=== PATIENT | female | born 1955 | race Caucasian/White ===

== ENCOUNTER → 2017-11-21 07:01 | Outpatient (CLI) | payer BC, SELFPAY ==
[2017-11-21 08:51] LABS: Add Manual Diff / Slide Review NO; Basophils Percent Auto 0.3 % (0-2); Hematocrit 42.6 % (36-46); Hemoglobin 14.5 g/dL (12.0-16.0); Lymphocytes Percent Auto 60.8 % (25-40); Mean Corpuscular Hemoglobin 31.4 PG (26-34); Mean Corpuscular Volume 92.5 fL (80-100); Monocytes Percent Auto 9.5 % (3-14); Neutrophils Absolute Auto 1000 /uL (3000-5900); Neutrophils Percent Auto 25.4 % (50-75); Platelet Count 172 X10^3/uL (150-400); Red Cell Distribution Width 13.5 % (11.6-14.8); White Blood Cell Count 3.8 X10^3/uL (4.5-11.0)
[2017-11-21 09:25] LABS: Alanine Aminotransferase 25 IU/L (9-52); Albumin 4.5 g/dL (3.5-5.0); Albumin Globulin Ratio 1.6 (1.0-2.8); Alkaline Phosphatase 45 U/L (38-126); Aspartate Aminotransferase 27 IU/L (14-36); Bilirubin Total 0.6 mg/dL (0.2-1.3); Blood Urea Nitrogen 18 mg/dL (7-17); Calcium 9.3 mg/dL (8.4-10.2); Carbon Dioxide 33 mmol/L (22-32); Chloride 104 mmol/L (98-107); Estimated Glomerular Filt Rate 55.8 mL/min (>60); Globulin 2.8 g/dL (1.7-4.1); Glucose 91 mg/dL (80-110); HEMOLYSIS < 15 (0-50); Potassium 3.8 mmol/L (3.4-5.1); Sodium 145 mmol/L (137-145); Total Protein 7.3 g/dL (6.3-8.2)
[2017-11-21 09:29] LABS: Free T3, Triiodothyronine Free 2.91 pg/mL (2.77-5.27); Free T4, Direct Thyroxine 0.69 ng/dL (0.78-2.19)
[2017-11-21 09:42] LABS: Thyroid Stimulating Hormone 3.89 uIU/mL (0.47-4.68)
== END ==
PROVIDERS: PCP Naturopath; Visit Provider Naturopath
DX: E03.9 Hypothyroidism, unspecified (principal)
CPT/HCPCS: 36415; 80053; 84439; 84443; 84481; 85025

== ENCOUNTER → 2018-05-01 14:20 | Outpatient (CLI) | payer MEDICARE, OTHER, SELFPAY ==
[2018-05-01 15:33] LABS: Alanine Aminotransferase 31 IU/L (9-52); Albumin 4.5 g/dL (3.5-5.0); Albumin Globulin Ratio 1.7 (1.0-2.8); Alkaline Phosphatase 54 U/L (38-126); Aspartate Aminotransferase 25 IU/L (14-36); BUN Creatinine Ratio 23.3 (6-22); Bilirubin Total 0.2 mg/dL (0.2-1.3); Blood Urea Nitrogen 21 mg/dL (7-17); Calcium 9.2 mg/dL (8.4-10.2); Carbon Dioxide 29 mmol/L (22-32); Chloride 101 mmol/L (98-107); Estimated Glomerular Filt Rate > 60.0 mL/min (>60); Globulin 2.6 g/dL (1.7-4.1); Glucose 88 mg/dL (80-110); HEMOLYSIS < 15 (0-50); Potassium 3.8 mmol/L (3.4-5.1); Sodium 140 mmol/L (137-145); Total Protein 7.1 g/dL (6.3-8.2)
[2018-05-01 15:37] LABS: Add Manual Diff / Slide Review NO; Basophils Absolute Auto 0 /uL (0-100); Basophils Percent Auto 0.4 % (0-2); Eosinophils Absolute Auto 100 /uL (0-450); Eosinophils Percent Auto 2.5 % (2-4); Hemoglobin 13.3 g/dL (12.0-16.0); Lymphocytes Absolute Auto 1800 /uL (1100-4500); Mean Corpuscular HGB Conc 34.1 % (30-36); Mean Corpuscular Hemoglobin 30.9 PG (26-34); Mean Corpuscular Volume 90.6 fL (80-100); Monocytes Absolute Auto 400 /uL (0-900); Monocytes Percent Auto 8.6 % (3-14); Neutrophils Absolute Auto 2500 /uL (1500-7000); Neutrophils Percent Auto 51.5 % (50-75); Platelet Count 177 X10^3/uL (150-400); Red Cell Distribution Width 13.5 % (11.6-14.8); White Blood Cell Count 4.9 X10^3/uL (4.5-11.0)
[2018-05-01 15:46] LABS: Free T3, Triiodothyronine Free 3.68 pg/mL (2.77-5.27); Free T4, Direct Thyroxine 0.68 ng/dL (0.78-2.19)
[2018-05-01 16:00] LABS: Thyroid Stimulating Hormone 1.36 uIU/mL (0.47-4.68)
== END ==
PROVIDERS: PCP Family Medicine; Visit Provider Family Medicine
DX: D70.9 Neutropenia, unspecified (principal); N28.9 Disorder of kidney and ureter, unspecified; E03.9 Hypothyroidism, unspecified
CPT/HCPCS: 36415; 80053; 84439; 84443; 84481; 85025

== ENCOUNTER → 2018-07-31 16:43 | Outpatient (CLI) | payer MEDICARE, OTHER, SELFPAY ==
--- NOTE | 2018-07-31 16:51 | DI.RAD.S_ITS ---
PROCEDURE: XR HIP W PEL IF DONE LT MIN 4V INDICATIONS: bilateral hip pain, L>R TECHNIQUE: AP pelvis with lateral view(s) of the bilateral hip(s) (frontal view of the pelvis and lateral view of each hip, 3 views total. COMPARISON: None. FINDINGS: Bones: No fractures or dislocations. Pelvic ring appears intact. No suspicious bony lesions. There is a slight degree of thinning of the interspace at each hip joint, symmetric. Soft tissues: The visualized bowel gas pattern is normal. No suspicious soft tissue calcifications. IMPRESSION: Minimal symmetric hip joint osteoarthritis. Dictated by: Alexander Ortega M.D. on 07/31/2018 at 17:34 Approved by: Alexander Ortega M.D. on 07/31/2018 at 17:35
== END ==
PROVIDERS: Family Provider Family Medicine; PCP Family Medicine; Visit Provider Family Medicine
DX: M25.551 Pain in right hip (principal); M25.552 Pain in left hip
CPT/HCPCS: 73522

== ENCOUNTER → 2018-08-30 12:33 | Outpatient (CLI) | payer MEDICARE, OTHER, SELFPAY ==
--- NOTE | 2018-08-30 12:35 | DI.RAD.S_ITS ---
PROCEDURE: XR LUMBAR SPINE 2-3V INDICATIONS: lumbar back pain TECHNIQUE: 3 views of the lumbar spine were acquired. COMPARISON: None. FINDINGS: Bones: 5 [id number] vertebrae are present. There is mild/moderate levoscoliosis; otherwise normal bony alignment. No vertebral body compression fractures. No suspicious bony lesions. Moderate to severe degenerative disease at L5-S1 and mild degenerative degenerative disc disease at L3-L4 and L4-L5. There is moderate facet arthropathy at L3-L4 and L4-L5. Soft tissues: Overlying bowel gas pattern is normal. No suspicious soft tissue calcifications. IMPRESSION: Scoliosis and degenerative changes in lumbar spine. Dictated by: Reji Dobbins M.D. on 08/30/2018 at 16:46 Approved by: Reji Dobbins M.D. on 08/30/2018 at 21:44
== END ==
PROVIDERS: Family Provider Family Medicine; PCP Family Medicine; Visit Provider Family Medicine
DX: M54.5 Low back pain (principal); M41.86 Other forms of scoliosis, lumbar region; M47.816 Spondylosis without myelopathy or radiculopathy, lumbar region; M47.817 Spondylosis without myelopathy or radiculopathy, lumbosacral region
CPT/HCPCS: 72100

== ENCOUNTER → 2019-05-18 07:56 | Outpatient (CLI) | payer MEDICARE, OTHER, SELFPAY ==
[2019-05-18 08:48] LABS: Alanine Aminotransferase 18 IU/L (<35); Albumin 4.7 g/dL (3.5-5.0); Albumin Globulin Ratio 1.5 (1.0-2.8); Alkaline Phosphatase 58 U/L (38-126); Aspartate Aminotransferase 27 IU/L (14-36); Bilirubin Total 0.5 mg/dL (0.2-1.3); Blood Urea Nitrogen 17 mg/dL (7-17); Calcium 9.8 mg/dL (8.4-10.2); Carbon Dioxide 29 mmol/L (22-32); Chloride 103 mmol/L (98-107); Cholesterol 205 mg/dL (140-199); Estimated Glomerular Filt Rate 51.9 mL/min (>60); Globulin 3.2 g/dL (1.7-4.1); Glucose 109 mg/dL (80-110); HDL Cholesterol 60 mg/dL (40-60); HEMOLYSIS < 15 (0-50); LDL Cholesterol Calculated 134 mg/dL (<100); Potassium 4.5 mmol/L (3.4-5.1); Sodium 140 mmol/L (137-145); Total Protein 7.9 g/dL (6.3-8.2); Triglycerides 54 mg/dL (35-150)
[2019-05-18 09:20] LABS: Free T3, Triiodothyronine Free 2.98 pg/mL (2.77-5.27); Free T4, Direct Thyroxine 0.82 ng/dL (0.78-2.19)
== END ==
PROVIDERS: Family Provider Family Medicine; PCP Family Medicine; Referring Provider Family Medicine; Visit Provider Family Medicine
DX: E03.9 Hypothyroidism, unspecified (principal)
CPT/HCPCS: 36415; 80053; 80061; 84439; 84481

== ENCOUNTER → 2019-08-26 11:36 | Outpatient (CLI) | payer MEDICARE, OTHER, SELFPAY ==
[2019-08-26 13:33] LABS: Blood Urea Nitrogen 17 mg/dL (7-17); Calcium 9.7 mg/dL (8.4-10.2); Carbon Dioxide 29 mmol/L (22-32); Chloride 103 mmol/L (98-107); Glucose 86 mg/dL (80-110); HEMOLYSIS < 15 (0-50); Potassium 4.6 mmol/L (3.4-5.1); Sodium 137 mmol/L (137-145)
[2019-08-26 13:35] LABS: BUN Creatinine Ratio 15.5 (6-22); Estimated Glomerular Filt Rate 49.7 mL/min (>60)
== END ==
PROVIDERS: Family Provider Family Medicine; PCP Family Medicine; Referring Provider Family Medicine; Visit Provider Family Medicine
DX: N28.9 Disorder of kidney and ureter, unspecified (principal)
CPT/HCPCS: 36415; 80048

== ENCOUNTER → 2019-09-19 13:08 | Outpatient (CLI) | payer MEDICARE, OTHER, SELFPAY ==
[2019-09-19 14:16] LABS: BUN Creatinine Ratio 16.2 (6-22); Blood Urea Nitrogen 16 mg/dL (7-17); Calcium 9.4 mg/dL (8.4-10.2); Carbon Dioxide 32 mmol/L (22-32); Chloride 102 mmol/L (98-107); Estimated Glomerular Filt Rate 56.1 mL/min (>60); Glucose 105 mg/dL (80-110); HEMOLYSIS < 15 (0-50); Potassium 4.2 mmol/L (3.4-5.1); Sodium 137 mmol/L (137-145)
== END ==
PROVIDERS: Family Provider Family Medicine; PCP Family Medicine; Referring Provider Family Medicine; Visit Provider Family Medicine
DX: N28.9 Disorder of kidney and ureter, unspecified (principal)
CPT/HCPCS: 36415; 80048

== ENCOUNTER → 2020-12-29 06:53 | Outpatient (CLI) | payer MEDICARE, OTHER, SELFPAY ==
[2020-12-29 08:20] LABS: Add Manual Diff / Slide Review NO; Basophils Absolute Auto 0 /uL (0-100); Basophils Percent Auto 0.3 % (0-2); Eosinophils Absolute Auto 100 /uL (0-450); Eosinophils Percent Auto 3.1 % (2-4); Hematocrit 39.7 % (36-46); Hemoglobin 13.3 g/dL (12.0-16.0); Lymphocytes Absolute Auto 2000 /uL (1100-4500); Lymphocytes Percent Auto 61.3 % (25-40); Mean Corpuscular HGB Conc 33.5 % (30-36); Mean Corpuscular Hemoglobin 30.7 PG (26-34); Mean Corpuscular Volume 91.8 fL (80-100); Monocytes Absolute Auto 300 /uL (0-900); Monocytes Percent Auto 10.2 % (3-14); Neutrophils Absolute Auto 800 /uL (1500-7000); Neutrophils Percent Auto 25.1 % (50-75); Platelet Count 174 X10^3/uL (150-400); Red Blood Cell Count 4.32 X10^6/uL (4.0-5.2); Red Cell Distribution Width 13.7 % (11.6-14.8); White Blood Cell Count 3.3 X10^3/uL (4.5-11.0)
[2020-12-29 08:36] LABS: Alanine Aminotransferase 19 IU/L (<35); Albumin 4.2 g/dL (3.5-5.0); Albumin Globulin Ratio 1.4 (1.0-2.8); Alkaline Phosphatase 56 U/L (38-126); Aspartate Aminotransferase 25 IU/L (14-36); BUN Creatinine Ratio 18.6 (6-22); Bilirubin Total 0.4 mg/dL (0.2-1.3); Blood Urea Nitrogen 18 mg/dL (7-17); Calcium 9.4 mg/dL (8.4-10.2); Carbon Dioxide 33 mmol/L (22-32); Chloride 102 mmol/L (98-107); Cholesterol 184 mg/dL (140-199); Estimated Glomerular Filt Rate 57.3 mL/min (>60); Glucose 91 mg/dL (80-110); HDL Cholesterol 63 mg/dL (40-60); HEMOLYSIS < 15 (0-50); LDL Cholesterol Calculated 110 mg/dL (<100); Potassium 3.7 mmol/L (3.4-5.1); Sodium 141 mmol/L (137-145); Total Protein 7.2 g/dL (6.3-8.2); Triglycerides 57 mg/dL (35-150)
[2020-12-29 08:51] LABS: Free T3, Triiodothyronine Free 2.92 pg/mL (2.77-5.27)
[2020-12-29 09:05] LABS: TSH w/ Reflex to FT4 2.46 uIU/mL (0.47-4.68)
== END ==
PROVIDERS: Family Provider Family Medicine; PCP Family Medicine; Referring Provider Family Medicine; Visit Provider Family Medicine
DX: E03.9 Hypothyroidism, unspecified (principal)
CPT/HCPCS: 36415; 80053; 80061; 84443; 84481; 85025

== ENCOUNTER → 2021-01-19 16:47 | Outpatient (CLI) | payer MEDICARE, OTHER, SELFPAY ==
--- NOTE | 2021-01-19 16:48 | DI.MG.S_ITS ---
BILATERAL DIGITAL SCREENING MAMMOGRAM 3D/2D WITH CAD: 01/19/2021 CLINICAL: Routine screening. Comparison is made to exam dated: 02/03/2017 [facility]. The tissue of both breasts is heterogeneously dense. This may lower the sensitivity of mammography. Current study was also evaluated with a Computer Aided Detection (CAD) system. No significant masses, calcifications, or other findings are seen in either breast. There has been no significant interval change. IMPRESSION: NEGATIVE There is no mammographic evidence of malignancy. A 1 year screening mammogram is recommended. This exam was interpreted at Station ID: [id number]. NOTE: For mammograms, a report in lay terms will be sent to the patient. Approximately 15% of breast malignancies will not be visualized mammographically. In the management of a palpable breast mass, a negative mammogram must not discourage biopsy of a clinically suspicious lesion. Electronically Signed By: Emory dyson/kim:01/20/2021 08:37:15 letter sent: Normal Exam ACR BI-RADS Category 1: Negative 3341F
== END ==
PROVIDERS: Family Provider Family Medicine; PCP Family Medicine; Referring Provider Family Medicine; Visit Provider Family Medicine
DX: Z12.31 Encounter for screening mammogram for malignant neoplasm of breast (principal)
CPT/HCPCS: 77063; 77067

== ENCOUNTER → 2021-01-25 14:11 | Outpatient (CLI) | payer MEDICARE, OTHER, SELFPAY | PROVIDERS: Family Provider Family Medicine; PCP Family Medicine; Referring Provider Family Medicine; Visit Provider Family Medicine | DX: Z78.0 Asymptomatic menopausal state (principal); M85.852 Other specified disorders of bone density and structure, left thigh; E07.9 Disorder of thyroid, unspecified; Z82.62 Family history of osteoporosis | CPT/HCPCS: 77080 ==

== ENCOUNTER → 2021-12-04 07:51 | Outpatient (CLI) | payer MEDICARE, OTHER, SELFPAY ==
[2021-12-04 09:26] LABS: Add Manual Diff / Slide Review NO; Basophils Absolute Auto 0 /uL (0-100); Basophils Percent Auto 0.3 % (0-2); Eosinophils Absolute Auto 200 /uL (0-450); Eosinophils Percent Auto 4.1 % (2-4); Hematocrit 42.4 % (36-46); Hemoglobin 14.1 g/dL (12.0-16.0); Lymphocytes Absolute Auto 2000 /uL (1100-4500); Lymphocytes Percent Auto 52.1 % (25-40); Mean Corpuscular HGB Conc 33.2 % (30-36); Mean Corpuscular Volume 93.5 fL (80-100); Monocytes Absolute Auto 400 /uL (0-900); Monocytes Percent Auto 11.1 % (3-14); Neutrophils Absolute Auto 1200 /uL (1500-7000); Neutrophils Percent Auto 32.4 % (50-75); Platelet Count 211 X10^3/uL (150-400); Red Blood Cell Count 4.54 X10^6/uL (4.0-5.2); Red Cell Distribution Width 13.6 % (11.6-14.8); White Blood Cell Count 3.8 X10^3/uL (4.5-11.0)
[2021-12-04 09:47] LABS: Alanine Aminotransferase 21 IU/L (<35); Albumin 4.4 g/dL (3.5-5.0); Albumin Globulin Ratio 1.4 (1.0-2.8); Alkaline Phosphatase 45 U/L (38-126); Aspartate Aminotransferase 26 IU/L (14-36); BUN Creatinine Ratio 16.7 (6-22); Bilirubin Total 0.5 mg/dL (0.2-1.3); Blood Urea Nitrogen 17 mg/dL (7-17); Calcium 8.7 mg/dL (8.4-10.2); Carbon Dioxide 31 mmol/L (22-32); Chloride 102 mmol/L (98-107); Cholesterol 186 mg/dL (140-199); Estimated Glomerular Filt Rate 60 mL/min (>60); Globulin 3.1 g/dL (1.7-4.1); Glucose 88 mg/dL (80-110); HDL Cholesterol 65 mg/dL (40-60); HEMOLYSIS < 15 (0-50); LDL Cholesterol Calculated 109 mg/dL (<100); Potassium 3.7 mmol/L (3.4-5.1); Sodium 139 mmol/L (137-145); Total Protein 7.5 g/dL (6.3-8.2); Triglycerides 58 mg/dL (35-150)
[2021-12-04 10:04] LABS: Free T3, Triiodothyronine Free 3.45 pg/mL (2.77-5.27); Free T4, Direct Thyroxine 0.77 ng/dL (0.78-2.19)
[2021-12-04 10:17] LABS: Thyroid Stimulating Hormone 1.88 uIU/mL (0.47-4.68)
[2021-12-04 12:21] LABS: Appearance Urine UA CLEAR; Bilirubin Urine UA NEGATIVE (NEGATIVE); Color Urine UA YELLOW; Glucose Urine UA NEGATIVE (Negative); Ketones Urine UA NEGATIVE (NEGATIVE); Leukocyte Esterase Urine UA 1+ (NEGATIVE); Nitrite Urine UA NEGATIVE (Negative); Occult Blood Urine UA NEGATIVE (Negative); Protein Urine UA NEGATIVE (Negative); Specific Gravity Urine UA <=1.005 (1.000-1.035); Urobilinogen Urine UA 0.2 E.U./dL (0.2)
[2021-12-04 12:49] LABS: Amorphous Sediment Urine 1+; Bacteria Urine Occasional (0-1); Culture Indicated Urine Specimen Cultured; RBC Urine None Seen (0-5/HPF); WBC Urine 0-1/HPF (0-5/HPF)
== END ==
PROVIDERS: Family Provider Family Medicine; PCP Family Medicine; Referring Provider Family Medicine; Visit Provider Family Medicine
DX: E03.9 Hypothyroidism, unspecified (principal); N28.9 Disorder of kidney and ureter, unspecified
CPT/HCPCS: 36415; 80053; 80061; 81003; 81015; 84439; 84443; 84481; 85025; 87086

== ENCOUNTER → 2022-07-13 12:13 | Outpatient (CLI) | payer MEDICARE, OTHER, SELFPAY | PROVIDERS: Family Provider Family Medicine; PCP Family Medicine; Visit Provider Obstetrics & Gynecology | DX: R30.0 Dysuria (principal) | CPT/HCPCS: 87077; 87086; 87186 ==

== ENCOUNTER → 2022-11-08 13:58 | Outpatient (CLI) | payer MEDICARE, OTHER, SELFPAY ==
[2022-11-08 16:33] LABS: Alanine Aminotransferase 5 IU/L (<35); Albumin 4.4 g/dL (3.5-5.0); Albumin Globulin Ratio 1.6 (1.0-2.8); Alkaline Phosphatase 43 U/L (38-126); Aspartate Aminotransferase 27 IU/L (14-36); Bilirubin Total 0.3 mg/dL (0.2-1.3); Blood Urea Nitrogen 16 mg/dL (7-17); Calcium 9.3 mg/dL (8.4-10.2); Carbon Dioxide 29 mmol/L (22-32); Chloride 101 mmol/L (98-107); Estimated Glomerular Filt Rate > 60 mL/min (>60); Globulin 2.7 g/dL (1.7-4.1); Glucose 108 mg/dL (80-110); HEMOLYSIS 26 (0-50); Potassium 4.4 mmol/L (3.4-5.1); Sodium 136 mmol/L (137-145); Total Protein 7.1 g/dL (6.3-8.2)
[2022-11-08 16:44] LABS: Free T4, Direct Thyroxine 1.44 ng/dL (0.78-2.19)
[2022-11-08 16:57] LABS: Thyroid Stimulating Hormone 0.108 uIU/mL (0.47-4.68)
== END ==
PROVIDERS: Family Provider Family Medicine; PCP Family Medicine; Referring Provider Family Medicine; Visit Provider Family Medicine
DX: E03.9 Hypothyroidism, unspecified (principal); M85.80 Other specified disorders of bone density and structure, unspecified site
CPT/HCPCS: 36415; 80053; 84439; 84443

== ENCOUNTER → 2023-01-25 15:44 | Outpatient (CLI) | payer MEDICARE, OTHER, SELFPAY ==
--- NOTE | 2023-01-25 15:46 | DI.MG.S_ITS ---
BILATERAL DIGITAL SCREENING MAMMOGRAM 3D/2D WITH CAD: 01/25/2023 CLINICAL: Routine screening. Comparison is made to exams dated: 01/19/2021 mammogram and 02/03/2017 mammogram - [facility]. Both breasts are heterogeneously dense, which may obscure small masses (category c / 51-75% glandular tissue). Current study was also evaluated with a Computer Aided Detection (CAD) system. There are benign calcifications in both breasts. No significant masses, calcifications, or other findings are seen in either breast. There has been no significant interval change. IMPRESSION: BENIGN There is no mammographic evidence of malignancy. A 1 year screening mammogram is recommended. Based on the Tyrer Cuzick model (a risk assessment model) the patient's lifetime risk is 7.1% and her 10 year risk is 4.5%. According to the ACR, ACS, and NCCN guidelines, an annual breast MRI exam along with mammogram is recommended if the patient's lifetime risk is 20% or greater. This exam was interpreted at Station ID: [id number]. NOTE: For mammograms, a report in lay terms will be sent to the patient. Approximately 15% of breast malignancies will not be visualized mammographically. In the management of a palpable breast mass, a negative mammogram must not discourage biopsy of a clinically suspicious lesion. Electronically Signed By: Hugo mckenna/kim:01/27/2023 08:55:29 letter sent: Normal Exam ACR BI-RADS Category 2: Benign Finding(s) 3342F
== END ==
PROVIDERS: Family Provider Family Medicine; PCP Family Medicine; Referring Provider Family Medicine; Visit Provider Family Medicine
DX: Z12.31 Encounter for screening mammogram for malignant neoplasm of breast (principal)
CPT/HCPCS: 77063; 77067

== ENCOUNTER → 2023-01-30 15:40 | Outpatient (CLI) | payer MEDICARE, OTHER, SELFPAY ==
--- NOTE | 2023-01-30 15:51 | DI.RAD.S_ITS ---
Bone Density Report Name: PARRISH LEE Age: 68 Sex: Female Ethnicity: White Date of : 1955 Indication: monitoring treatment; Referring Provider: LUCY NEWMAN Study: Bone densitometry was performed. Exam Date: January 30, 2023 Accession number: [id number] Bone Density: Region BMD T-score Z-score Classification AP Spine(L1-L4) 1.076 0.3 2.4 Normal Femoral Neck (Left) 0.644 -1.8 -0.1 Osteopenia Total Hip (Left) 0.731 -1.7 -0.2 Osteopenia Femoral Neck (Right) 0.680 -1.5 0.3 Osteopenia Total Hip (Right) 0.783 -1.3 0.2 Osteopenia Total Hip Mean 0.757 -1.5 0.0 Osteopenia World Health Organization criteria for BMD impression classify patients as: Normal (T-score at or above -1.0), Osteopenia (T-score between -1.0 and -2.5), or Osteoporosis (T-score at or below -2.5). 10-year Fracture Risk: FRAX not reported because: Treated for osteoporosis Previous Exams: -- Region Exam Age BMD T-score BMD Change BMD Change Date g/cm2 vs Baseline vs Previous -- AP Spine (L1-L4) 01/30/2023 68 1.076 0.3 0.002 (0.2%)# -0.003 (-0.3%)# 01/25/2021 66 1.079 0.3 0.005 (0.5%) 0.005 (0.5%) 12/20/2016 61 1.074 0.2 -- *Denotes significance at 95% confidence level, LSC for AP Spine = 0.022 g/cm2 # Denotes dissimilar scan types or analysis methods Impression: The patient has low bone mass, based on the Left Femoral Neck T-score. No significant bone loss was observed. Discussion: PATIENT UNDER TREATMENT WITH NO SIGNIFICANT BMD LOSS SINCE LAST EXAM. In an untreated patient, BMD typically declines with age. A lack of decline or gain is usually a sign that treatment is efficacious and fracture risk is reduced. It is important to ask patients whether they are taking their medications and to encourage continued and appropriate compliance with their osteoporosis therapies to reduce fracture risk. It is also important to review their risk factors and encourage appropriate calcium and vitamin D intakes, exercise, fall prevention and other lifestyle measures. Follow-Up: Consider a repeat BMD and Vertebral Fracture Assessment (VFA) exam in 2 years or sooner if medically necessary, to reassess this patient's status. Reported by: GLADIS BOLDEN MD on 01/30/2023 4:19:00 PM.
== END ==
PROVIDERS: Family Provider Family Medicine; PCP Family Medicine; Referring Provider Family Medicine; Visit Provider Family Medicine
DX: M85.89 Other specified disorders of bone density and structure, multiple sites (principal)
CPT/HCPCS: 77080

== ENCOUNTER 2023-04-20 07:32 | Day surgery (SDC) | payer MEDICARE, OTHER, SELFPAY ==
[2023-04-20] MEDS: LACTATED RINGERS 1,000 ML 42 ML IV (07:59)
[2023-04-20 08:00] VITALS: BP 135/86; PULSE 75; RESP 18; TEMP 36.6; O2SAT 100
[2023-04-20] MEDS: FLEETS ENEMA 1 EACH PR (08:00)
--- NOTE | 2023-04-20 08:46 | P.HP_ITS ---
History of Present Illness History of Present Illness Date Patient Seen: 04/20/23 Time Patient Seen: 08:47 Chief complaint: [facility] [place] [facility] [place]arrative: Mother of colon cancer in her 70's. No symptoms currently [facility] Medical History Medicare annual wellness visit, subsequent Encounter for wellness examination in adult [facility] health care Onychomycosis Parkinson disease Family history of colon cancer Osteopenia Renal insufficiency Lumbar radiculopathy Vision disorder Seasonal allergies Scoliosis Scarlet fever Anemia Ovarian cyst Heavy menstrual period Fibroids Surgical History Anesthesia History of oral surgery History of prior ablation treatment (~2002) Family History Father No problems noted. Mother Cancer Social History marital status: number of children: 2 household members: spouse lives independently: Yes education level: college occupational status: employed Smoking Status: Never smoker alcohol intake: never substance use type: does not use Meds Home Medications and Allergies Home Medications Medication Instructions Recorded Confirmed Type cortisol field services manager See Rx Instructions PO .QD 05/01/18 01/09/23 History magnesium oxide 250 mg PO DAILY 05/01/18 01/09/23 History melatonin 2.5 mg chewable tablet 2.5 mg PO BEDTIME 05/01/18 01/09/23 History strontium 400 mg PO .QD 05/01/18 01/09/23 History {E2/E3} 2 mg/8 mg per gram See Rx Instructions .Route 03/02/22 01/09/23 Rx .COMPLEX #1 unit levothyroxine 100 mcg tablet 100 mcg PO QAM 11/08/22 01/09/23 History terbinafine HCl 250 mg tablet 250 mg PO DAILY #90 tabs 11/08/22 01/09/23 Rx Progesterone See Rx Instructions .Route .COMPLEX 01/09/23 History ascorbic acid (vitamin C) 500 mg 500 mg PO DAILY 01/09/23 01/09/23 History tablet calcium carbonate 200 mg calcium 200 mg PO DAILY 01/09/23 01/09/23 History (500 mg) chewable tablet (Antacid (calcium carbonate)) calcium-vitamin D3-vitamin K 500 tab PO 01/09/23 01/09/23 History mg-1,000 unit-40 mcg chewable tablet carbidopa 25 mg-levodopa 100 mg 1 tab PO TID 01/09/23 01/09/23 History disintegrating tablet cholecalciferol (vitamin D3) 125 125 mcg PO DAILY 01/09/23 01/09/23 History mcg (5,000 unit) capsule cholecalciferol (vitamin D3) 250 5,000 unit PO DAILY 01/09/23 01/09/23 History mcg (10,000 unit) capsule ozfhflvb-nlr-henl-FA-Ca carb-vit K 1 tab PO DAILY 01/09/23 01/09/23 History 18 mg iron-400 mcg-500 mg tablet omega 7-zev-cad-fish oil 1,000 mg 1 cap PO DAILY 01/09/23 01/09/23 History (120 mg-180 mg) capsule (Fish Oil) selegiline HCl 5 mg tablet 7.5 mg PO 01/09/23 01/09/23 History sodium sul 1.479 gram-potas ch See Rx Instructions PO PER PKG DIR 02/01/23 Rx 0.188 gram-magnes sul 0.225 gram #24 tabs tablet (Sutab) Allergies Allergy/AdvReac Type Severity Reaction Status Date / Time No Known Drug Allergies Allergy Verified 01/09/23 13:56 Review of Systems Review of Systems ROS: Yes All systems reviewed with the patient and are negative except as otherwise documented Exam Vital Signs (past 8 hours): - 04/20/23 08:00 Temperature 98 F Pulse Rate 75 Respiratory Rate 18 Blood Pressure 135/86 Pulse Oximetry 100 Oxygen Delivery Method Room Air Oxygen Delivery Method Room Air Const General: cooperative and comfortable [facility] Head: normocephalic and atraumatic Eyes General: appearance normal, both eyes and all related structures Sclera: sclerae normal Resp Effort & Inspection: normal respiratory effort and able to speak in complete sentences Cardio Rate: regular rate Rhythm: regular rhythm GI Palpation: soft and No tender Skin General: atrophy Neuro General: patient alert, patient awake and patient oriented x3 Psych Appearance: grossly normal Mental Status: mental status grossly normal Judgment: judgment good Assessment & Plan Assessment & Plan narrative: Colon cancer screening Plan: Colonoscopy with anesthesia Time Spent With Patient Time with patient: less than 30 minutes
--- NOTE | 2023-04-20 09:18 | PM.OP.COLON ---
Operative Date/Time/Diagnoses Date of procedure: 04/20/23 Time of procedure: 09:18 Pre-op diagnosis: Colon cancer screening Post-op diagnosis: same Procedure & Clinicians Study performed: Colonoscopy with anesthesia Same procedure as scheduled: Yes Indications: Colon cancer screening Surgeon: Tamanna Macdonald Procedure Notes Procedure in detail: Preop diagnosis: Colon cancer screening Postop diagnosis: Same Operative procedure: Colonoscopy with anesthesia Surgeon: Christiana Macdonald MD Findings: Normal colonoscopy. However there was areas of poor bowel prep that may disguise small polyps. No diverticulosis found Procedure: Patient placed in lateral position. Rectal exam performed showing normal tone no masses. Scope was inserted into the rectum and advanced to ileocecal valve with minimal difficulty. Insufflation extraction scope and the above finding. Retroflex was included in the rectum Impression: Normal colonoscopy. No polyps, no diverticulosis. Plan: Repeat colonoscopy in 10 years unless otherwise indicated by change in clinical condition Specimen(s): none sent Complications: none Post-procedure Recommendations: Colonoscopy in 10 years Follow up: as needed Disposition: PACU
[2023-04-20 09:20] VITALS: BP 94/56; PULSE 70; RESP 20; TEMP 36.3; O2SAT 100
[2023-04-20 09:25] VITALS: BP 94/64; PULSE 74; RESP 20; O2SAT 100
[2023-04-20 09:30] VITALS: BP 134/75; PULSE 65; RESP 18; O2SAT 100
[2023-04-20 09:38] VITALS: BP 113/65; PULSE 59; RESP 12; O2SAT 100
== END 2023-04-20 09:45 | disposition home or self-care (01) ==
PROVIDERS: Family Provider Family Medicine; PCP Family Medicine; Referring Provider Surgery; Visit Provider Surgery
PROC: 0DJD8ZZ Inspection of Lower Intestinal Tract, Via Natural or Artificial Opening Endoscopic (ICD-10-PCS; CPT 45378; principal; 2023-04-20 08:15)
DX: Z12.11 Encounter for screening for malignant neoplasm of colon (principal)
CPT/HCPCS: G0121; J2704

== ENCOUNTER 2023-09-07 16:29 | Emergency (ER) | payer MEDICARE, OTHER, SELFPAY ==
[2023-09-07 16:43] VITALS: BP 132/74; PULSE 88; RESP 18; TEMP 37.2; O2SAT 100; BMI 18.6
[2023-09-07] MEDS: AMOXICILLIN 250 MG PREPACK 1 BOTTLE MISC (18:29)
--- NOTE | 2023-09-07 18:29 | EKG_ITS ---
[address] [address] Test Date: 2023-09-07 Pat Name: Estela Varghese Department: [facility] Room: Gender: Female Continuous Improvement Analyst: GLENNA : 1955 Requested By: Order Number: [id number] Reading MD: Ovidio Chacon Measurements Intervals [place] Rate: 71 P: 79 WI: 148 QRS: 77 QRSD: 78 T: 75 QT: 380 QTc: 412 Interpretive Statements Normal sinus rhythm Right atrial enlargement Electronically Signed On 09-12-2023 8:59:48 PDT by Ovidio Chacon
--- NOTE | 2023-09-07 18:30 | ED.URI ---
HPI - URI/Sore Throat General Chief Complaint: Upper Respiratory Symptoms Stated Complaint: sore throat, fever Time Seen by Provider: 09/07/23 17:55 Source: patient Mode of arrival: Ambulatory History of Present Illness HPI Narrative: Patient 68-year-old female history of Parkinson's and hypothyroid presenting today with sore throat and upper respiratory like symptoms. is here as well as the patient and he is positive for COVID and strep. She reports his symptoms started 1st and then her symptoms started. She is staying hydrated. No significant cough or shortness breath. She is having some epigastric burning like sensation. But denies chest pain. She has no history of coronary artery disease. Related Data Home Medications Medication Instructions Recorded Confirmed cortisol manager heart failure See Rx Instructions PO .QD 05/01/18 06/13/23 magnesium oxide 250 mg PO DAILY 05/01/18 06/13/23 melatonin 2.5 mg chewable tablet 2.5 mg PO BEDTIME 05/01/18 06/13/23 strontium 400 mg PO .QD 05/01/18 06/13/23 levothyroxine 100 mcg tablet 100 mcg PO QAM 11/08/22 06/13/23 Progesterone See Rx Instructions .Route .COMPLEX 01/09/23 06/13/23 ascorbic acid (vitamin C) 500 mg 500 mg PO DAILY 01/09/23 06/13/23 tablet calcium carbonate (Antacid 200 mg PO DAILY 01/09/23 06/13/23 (calcium carbonate)) calcium-vitamin D3-vitamin K 500 tab PO 01/09/23 06/13/23 mg-1,000 unit-40 mcg chewable tablet carbidopa 25 mg-levodopa 100 mg 1 tab PO TID 01/09/23 06/13/23 disintegrating tablet cholecalciferol (vitamin D3) 125 125 mcg PO DAILY 01/09/23 06/13/23 mcg (5,000 unit) capsule cholecalciferol (vitamin D3) 250 5,000 unit PO DAILY 01/09/23 06/13/23 mcg (10,000 unit) capsule phnbpzud-pkv-yjqm-FA-Ca carb-vit K 1 tab PO DAILY 01/09/23 06/13/23 18 mg iron-400 mcg-500 mg tablet omega 3-ylg-hfv-fish oil 1,000 mg 1 cap PO DAILY 01/09/23 06/13/23 (120 mg-180 mg) capsule (Fish Oil) selegiline HCl 5 mg tablet 7.5 mg PO 01/09/23 06/13/23 Previous Rx's Medication Instructions Recorded {E2/E3} 2 mg/8 mg per gram See Rx Instructions .Route 03/02/22 .COMPLEX #1 unit terbinafine HCl 250 mg tablet 250 mg PO DAILY #90 tabs 11/08/22 sodium sul 1.479 gram-potas ch See Rx Instructions PO PER PKG DIR 02/01/23 0.188 gram-magnes sul 0.225 gram #24 tabs tablet (Sutab) amoxicillin 500 mg capsule 500 mg PO BID #20 caps 09/07/23 Allergies Allergy/AdvReac Type Severity Reaction Status Date / Time No Known Drug Allergies Allergy Verified 09/07/23 16:46 Patient History Medical History Medicare annual wellness visit, subsequent Encounter for wellness examination in adult [facility] health care Onychomycosis Parkinson disease Family history of colon cancer Osteopenia Renal insufficiency Lumbar radiculopathy Vision disorder Seasonal allergies Scoliosis Scarlet fever Anemia Ovarian cyst Heavy menstrual period Fibroids Surgical History Anesthesia History of oral surgery History of prior ablation treatment (~2002) Family History Father No problems noted. Mother Cancer Social History marital status: number of children: 2 household members: spouse lives independently: Yes education level: college occupational status: employed Smoking Status: Never smoker alcohol intake: never substance use type: does not use Smoking Status: Never smoker Substance Use Type: does not use Exam Initial Vital Signs Initial Vital Signs: Vital Signs Temperature 99.0 F 09/07/23 16:43 Pulse Rate 88 09/07/23 16:43 Respiratory Rate 18 09/07/23 16:43 Blood Pressure 132/74 09/07/23 16:43 Pulse Oximetry 100 09/07/23 16:43 Oxygen Delivery Method Room Air 09/07/23 16:43 GENERAL: Alert very well-appearing 68-year-old female and in no acute distress. HEENT: Head atraumatic,EOMI, pupils reactive, face symmetric, moist mucous membranes PHARYNX: No significant erythema no uvula swelling or deviation mild cervical lymphadenopathy managing secretions CARDIOVASCULAR: Regular rate and rhythm without murmurs, rubs or gallops. RESPIRATORY: Breath sounds equal bilaterally, no wheezes rales or rhonchi. EXTREMITIES: Normal range of motion, no clubbing or edema. Neurovascularly intact NEUROLOGICAL: Alert and oriented x4. SKIN: Warm, dry, no laceration, no petechiae, no rashes or lesions. Course Orders Ordered: ED Orders 09/07/23 18:20 EKG-12 Lead Stat Discontinued Medications Amoxicillin (Amoxicillin 250 Mg Prepack) 1 bottle MISC DIRECTED ONE Stop: 09/07/23 18:24 Last Admin: 09/07/23 18:29 Dose: 1 bottle Documented By: IMELDA Vital Signs Vital signs: Vital Signs - 8 hr 09/07/23 16:43 09/07/23 18:46 Temperature 99.0 F Pulse Rate 88 70 Respiratory Rate 18 18 Blood Pressure 132/74 118/72 Pulse Oximetry 100 96 Oxygen Delivery Method Room Air Room Air MDM - URI/Sore Throat ECG Data Attestation: I personally reviewed and interpreted this ECG as follows: Interpretation: Normal sinus rhythm rate 71 MA interval 140 QRS [address] changes [facility] Narrative Medical decision making narrative: Patient 68-year-old female history of Parkinson's presenting today with sore throat and upper respiratory like symptoms. was diagnosed with COVID and strep in the same visit. It is presumed that she has both as well. She has no evidence of peritonsillar retropharyngeal abscess she is managing her own secretions. She overall appears well. She has not hypoxic. Patient is having some burning and epigastric discomfort she denies chest pain EKGs overall reassuring I think symptoms are most likely related to strep and COVID. Discharge Plan Departure Patient Disposition: Home Clinical Impression: Strep pharyngitis, COVID-19 Instructions: DI for Strep Throat, COVID-19 Activity Restrictions/Additional Instructions: *You have been diagnosed with strep throat and COVID-19 *What to do: At this time please stay hydrated eat as tolerated. Your throat should start feeling a little better with antibiotics. COVID symptoms can last up to 2 weeks *Continue to take medications as directed Amoxicillin 500 mg twice a day Tylenol 1000 mg every 6 hours if needed for pain or fever Motrin 400 mg every 6 hours if needed for pain or fever *Follow up with your primary care provider in 2-3 days or call [phone] *Return to ER if you should have increasing confusion difficulty breathing not tolerating fluids or any new, worsening or concerning symptoms Prescriptions: New amoxicillin 500 mg capsule 500 mg PO BID Qty: 20 0RF No Action {E2/E3} 2 mg/8 mg per gram See Rx Instructions .ROUTE .COMPLEX Qty: 1 11RF Dose Instruction: 0.5gram (2 clicks) to skin of upper thigh 4 times per week ; Rx Instructions: 0.5gram (2 clicks) to skin of upper thigh 4 times per week ; Sutab 1.479-0.188- 0.225 gram tablet See Rx Instructions PO PER PKG DIR Qty: 24 0RF Rx Instructions: take as directed by Physician carbidopa-levodopa 25-100 mg tablet,disintegrating 1 tab PO TID cortisol manager heart failure See Rx Instructions PO .QD Patient Comments: 1 capsule PO .QD; ashwaganda/magnolia 250mg/225mg Rx Instructions: 1 capsule PO .QD; ashwaganda/magnolia 250mg/225mg magnesium oxide 250 mg magnesium tablet 250 mg PO DAILY melatonin 2.5 mg tablet,chewable 2.5 mg PO BEDTIME strontium 400 mg PO .QD cholecalciferol (vitamin D3) 250 mcg (10,000 unit) capsule 5,000 unit PO DAILY levothyroxine 100 mcg tablet 100 mcg PO QAM terbinafine HCl 250 mg tablet 250 mg PO DAILY Qty: 90 1RF selegiline HCl 5 mg tablet 7.5 mg PO Progesterone See Rx Instructions .ROUTE .COMPLEX Dose Instruction: 75mg tablet by mouth 4 times per week ; Rx Instructions: 75mg tablet by mouth 3 times per week ; cholecalciferol (vitamin D3) 125 mcg (5,000 unit) capsule 125 mcg PO DAILY ascorbic acid (vitamin C) 500 mg tablet 500 mg PO DAILY omega 0-rls-ejj-fish oil [Fish Oil] 1,000 mg (120 mg-180 mg) capsule 1 cap PO DAILY calcium-vitamin D3-vitamin K 500 mg-1,000 unit-40 mcg tablet,chewable PO Rx Instructions: K1- 500 mcg, K2 - 1,000 mcg, K3 - 45 mcg np-pz-tdoy-FA-Ca carb-vit K 18 mg iron-400 mcg-500 mg tablet 1 tab PO DAILY calcium carbonate [Antacid (calcium carbonate)] 200 mg calcium (500 mg) tablet,chewable 200 mg PO DAILY Referrals: Brad Sims DO [Primary Care Provider] - Stand Alone Forms: Patient Portal/API
[2023-09-07 18:46] VITALS: BP 118/72; PULSE 70; RESP 18; O2SAT 96
== END 2023-09-07 19:01 | disposition home or self-care (01) ==
PROVIDERS: Emergency Provider Emergency Medicine; Family Provider Family Medicine; PCP Family Medicine
DX: J02.0 Streptococcal pharyngitis (principal); U07.1 COVID-19
CPT/HCPCS: 93005; 99281; 99283

== ENCOUNTER → 2024-07-18 15:38 | Outpatient (CLI) | payer MEDICARE, OTHER, SELFPAY ==
--- NOTE | 2024-07-18 16:05 | DI.RAD.S_ITS ---
PROCEDURE: XR HAND LT MIN 3V INDICATIONS: lt thumb pain TECHNIQUE: 3 views of the hand acquired. COMPARISON: None. FINDINGS: Bones: No acute fractures or dislocations. Carpal bones are normally aligned. No suspicious bony lesions. Severe degenerative changes of the 1st carpometacarpal joint with subchondral cystic changes, marginal osteophytes, and remodeling of the articular surfaces. Focal arthritic changes at the 5th distal interphalangeal joint with central erosion suspicious for possible osteoarthritis. Moderate degenerative changes throughout the fingers. Soft tissues: No suspicious soft tissue calcifications. IMPRESSION: 1. Severe arthritic changes at the 1st carpometacarpal joint. 2. Degenerative changes throughout the interphalangeal joints of the fingers with central erosion noted at the 5th distal interphalangeal joint, suspicious for erosive osteoarthritis. Approved by: Emory Villarreal M.D. on 07/19/2024 at 15:21
[2024-07-18 16:26] LABS: Add Manual Diff / Slide Review NO; Basophils Absolute Auto 0 /uL (0-100); Basophils Percent Auto 0.2 % (0-2); Eosinophils Absolute Auto 100 /uL (0-450); Eosinophils Percent Auto 1.7 % (2-4); Hematocrit 39.1 % (36-46); Lymphocytes Absolute Auto 1500 /uL (1100-4500); Lymphocytes Percent Auto 28.9 % (25-40); Mean Corpuscular HGB Conc 33.4 % (30-36); Mean Corpuscular Hemoglobin 31.4 PG (26-34); Mean Corpuscular Volume 94.2 fL (80-100); Monocytes Absolute Auto 500 /uL (0-900); Monocytes Percent Auto 9.2 % (3-14); Neutrophils Absolute Auto 3200 /uL (1500-7000); Platelet Count 174 X10^3/uL (150-400); Red Blood Cell Count 4.15 X10^6/uL (4.0-5.2); Red Cell Distribution Width 13.5 % (11.6-14.8); White Blood Cell Count 5.3 X10^3/uL (4.5-11.0)
[2024-07-18 16:45] LABS: HEMOLYSIS < 15 (0-50); Iron 103 ug/dL (37-170)
[2024-07-18 16:48] LABS: Alanine Aminotransferase 8 IU/L (<35); Albumin 4.6 g/dL (3.5-5.0); Albumin Globulin Ratio 1.9 (1.0-2.8); Alkaline Phosphatase 57 U/L (38-126); Aspartate Aminotransferase 27 IU/L (14-36); BUN Creatinine Ratio 20.3 (6-22); Bilirubin Total 0.4 mg/dL (0.2-1.3); Blood Urea Nitrogen 15 mg/dL (7-17); Calcium 9.3 mg/dL (8.4-10.2); Carbon Dioxide 28 mmol/L (22-32); Chloride 102 mmol/L (98-107); Cholesterol 152 mg/dL (140-199); Estimated Glomerular Filt Rate > 60 mL/min (>60); Globulin 2.4 g/dL (1.7-4.1); Glucose 112 mg/dL (70-99); HDL Cholesterol 58 mg/dL (40-60); HEMOLYSIS < 15 (0-50); LDL Cholesterol Calculated 78 mg/dL (<100); Potassium 4.1 mmol/L (3.4-5.1); Sodium 139 mmol/L (137-145); Triglycerides 82 mg/dL (35-150)
[2024-07-18 16:57] LABS: Percent Iron Saturation 34 % (15-50); Total Iron Binding Capacity 302 ug/dL (265-497); Transferrin 247 mg/dL (206-381)
[2024-07-18 17:17] LABS: TSH w/ Reflex to FT4 0.02 uIU/mL (0.47-4.68)
[2024-07-18 17:20] LABS: Ferritin 53 ng/mL (11-264)
[2024-07-18 17:53] LABS: Folate 7.3 ng/mL (2.76-20.0); Vitamin B12 297 pg/mL (239-931)
[2024-07-18 18:42] LABS: Free T4, Direct Thyroxine 1.28 ng/dL (0.78-2.19)
== END ==
PROVIDERS: Family Provider Family Medicine; PCP Family Medicine; Referring Provider Nurse Practitioner Family; Visit Provider Nurse Practitioner Family
DX: E03.9 Hypothyroidism, unspecified (principal); Z78.9 Other specified health status; G20.A1 Parkinson's disease without dyskinesia, without mention of fluctuations; M19.042 Primary osteoarthritis, left hand
CPT/HCPCS: 36415; 73130; 80053; 80061; 82607; 82728; 82746; 83540; 83550; 84439; 84443; 85025

== ENCOUNTER → 2024-10-07 13:19 | Outpatient (CLI) | payer MEDICARE, OTHER, SELFPAY ==
[2024-10-07 14:54] LABS: TSH w/ Reflex to FT4 0.40 uIU/mL (0.47-4.68)
[2024-10-07 15:27] LABS: Free T4, Direct Thyroxine 1.18 ng/dL (0.78-2.19)
== END ==
PROVIDERS: Family Provider Family Medicine; PCP Nurse Practitioner Family; Referring Provider Nurse Practitioner Family; Visit Provider Nurse Practitioner Family
DX: E03.9 Hypothyroidism, unspecified (principal)
CPT/HCPCS: 36415; 84439; 84443

== ENCOUNTER → 2024-11-26 14:37 | Outpatient (CLI) | payer MEDICARE, OTHER, SELFPAY ==
[2024-11-26 16:14] LABS: TSH w/ Reflex to FT4 2.08 uIU/mL (0.47-4.68)
== END ==
PROVIDERS: Family Provider Family Medicine; PCP Nurse Practitioner Family; Referring Provider Nurse Practitioner Family; Visit Provider Nurse Practitioner Family
DX: E03.9 Hypothyroidism, unspecified (principal)
CPT/HCPCS: 36415; 84443